=== PATIENT | male | born 1965 | race Caucasian/White ===

== ENCOUNTER 2018-01-12 20:32 | Emergency (ER) | payer OTHER ==
[~2018-01-12 20:32] MED LIST: PREVACID30 M1 PO
--- NOTE | 2018-01-12 21:02 | ED UPPER/LOWER EXTREMITY COMPL ---
History of Present Illness General Chief Complaint: Laceration Procedure Stated Complaint: FISHING HOOK IN 4TH FINGER, R HAND Source: patient Exam Limitations: no limitations Vital Signs & Intake/Output Vital Signs & Intake/Output Vital Signs Date Time Temp Pulse Resp B/P B/P Pulse O2 O2 Flow FiO2 Mean Ox Delivery Rate 01/12 2257 97.8 78 19 132/82 98 Room Air 01/12 2050 97.1 78 16 134/90 98 Room Air ED Intake and Output 01/13 0000 01/12 1200 Intake Total Output Total Balance Patient 195 lb Weight Weight Reported by Patient Measurement Method Allergies Coded Allergies: Sulfa (Sulfonamide Antibiotics) (Mild, ITCHING 01/12/18) acetaminophen (From DARVOCET-N) (Mild, DIZZY AND NAUSEAS 01/12/18) propoxyphene (From DARVOCET-N) (Mild, DIZZY AND NAUSEAS 01/12/18) Reconcile Medications Augmentin (Augmentin 500-125 Tablet) 500 MG-125 MG TABLET 1 TAB PO BID FOREIGN BODY REMOVAL Lansoprazole (Prevacid) 30 MG CAPSULE.DR 30 MG PO DAILY ACID REFLUX (Reported ) Triage Note: PT TO ED WITH C/O FISHING HOOK STUCK IN RIGHT RING FINGER. PT BELIEVES HE IS UTD WITH TETANUS Triage Nurses Notes Reviewed? yes Onset: Abrupt Duration: constant Timing: single episode today Severity: moderate Severity Numbers: 5 HPI: Patient is a 52-year-old male with past medical history hyperlipidemia who presents emergency room stating that while grabbing something in his garage he did not know there was a fish hook behind the object where he noticed acute onset of stabbing right fourth digit distal aspect finger pain and noted that the fish hook was embedded in the skin where he cannot remove it prior to arrival. Tetanus is unknown. Patient is [id number] (Praful Khan) Past History Travel History Traveled to [place] past 21 day No Medical History Any Pertinent Medical History? see below for history Neurological: NONE EENT: NONE Cardiovascular: NONE Respiratory: NONE Gastrointestinal: GERD Hepatic: NONE Renal: NONE Musculoskeletal: TORN MENISCUS Psychiatric: NONE Endocrine: NONE Blood Disorders: NONE Cancer(s): NONE PATIENT SERVICE REP/Reproductive: NONE Surgical History Surgical History: RT SHOULDER SX RT PINKY SX Psychosocial History What is your primary language Guatemalan Tobacco Use: Current Daily Use Daily Tobacco Use Amount/Type: => 5 Cigarettes daily Family History Hx Contributory? No (Praful Khan) Review of Systems Review of Systems Constitutional: Reports: no symptoms. EENTM: Reports: no symptoms. Respiratory: Reports: no symptoms. Cardiovascular: Reports: no symptoms. Gastrointestinal/Abdominal: Reports: no symptoms. Genitourinary: Reports: no symptoms. Musculoskeletal: Reports: see HPI. Skin: Reports: see HPI. Neurological/Psychological: Reports: no symptoms. Hematologic/Endocrine: Reports: see HPI. Immunological: Reports: no symptoms. All Other Systems: Reviewed and Negative (Praful Khan) Physical Exam Physical Exam General Appearance: no apparent distress, alert, comfortable Head: atraumatic Eyes: Bilateral: normal appearance. Ears, Nose, Throat: hearing grossly normal Peripheral Pulses: 2+ radial (L) Neurologic/Tendon: normal sensation, normal motor functions, normal tendon functions, responds to pain, no evidence tendon injury, no pulse deficit Skin: normal color Diagram Hands Front 1) NOTED IMBEDDED FISH HOOK IN 4THDIGIT NO ACTIVE BLEEDING (Praful Khan) Progress Differential Diagnosis: arterial insufficiency, compartment syndrome, contusion, dislocation, DVT, fracture, gout, septic arthritis, sprain, tendon injury Plan of Care: Current Medications Sig/Moise Start time Last Medication Dose Stop Time Status Admin Lidocaine 20 ML ONCE ONE 01/12 2115 UNVr (Lidocaine 1%) 01/13 2116 Tetanus/Diphtheria 0.5 ML ONCE ONE 01/12 2115 UNVr Toxoids Adsorbed 01/13 2116 (Decavac) Patient has noted indwelling fishhook to his right fourth digit finger There was noted Ralph at the distal end of the fish hook Using initially sterile technique Betadine to the right fourth digit I then used 8 mL of 1% lidocaine for digital block Due to the angulation of the fishhook and the depth of the fishhook that I could not advance the ralph through the skin to cut stitches last affect of the fishhook with the ralph that I had to make an incision proximal to the embedded and other fishhook using a #10 blade approximate 8 mm incision was made then now is able to completely pull out the [place]lin intact fishhook Patient tolerated well The incision site was then irrigated with copious amounts of 500 mL of sterile water and I applied chlorhexidine scrub to the region Been using benzoin on the margins I applied #5 Steri-Strips to the region then I applied gauze and finger splint Patient will be prophylactically given antibiotics Patient tolerated procedure well no concerns of foreign body retention however I did discuss with patient that this may always occur however the fishhook was fully intact in the site was significantly irrigated After the incision was made and the fishhook was removed patient had full resisted range of motion with flexion and extension of the right fourth digit and no concerns of tendon deficit after the procedure (Praful Khan) Departure Departure Disposition: HOME OR SELF CARE Condition: Stable Clinical Impression Primary Impression: Fish hook injury of finger of left hand Referrals: Cece COLEMAN,Franco Kay (PCP/Family) Additional Instructions: As discussed begin the prescription of Augmentin as directed to prevent infection, prescription rating at [facility]. If bleeding reoccurs apply direct pressure after 15 minutes of bleeding still exists return to emergency room, if you note signs of infection redness, pain, swelling or discharge return to emergency room. Begin [id number] ibuprofen for pain and inflammation. The Steri-Strips THAT HAVE BEEN APPLIED TO YOU IN THE emergency ROOM will follow for approximately 4 days, Departure Forms: Customer Survey General Discharge Information Prescriptions: Current Visit Scripts Augmentin (Augmentin 500-125 Tablet) 1 TAB PO BID #14 TAB (Praful Khan) PA/WOODS BOSS Co-Sign Statement Statement: ED Attending supervision documentation- [] I saw and evaluated the patient. I have also reviewed all the pertinent lab results and diagnostic results. I agree with the findings and the plan of care as documented in the PA's/WOODS BOSS's documentation. x I have reviewed the ED Record and agree with the PA's/WOODS BOSS's documentation. [] Additions or exceptions (if any) to the PAs/WOODS BOSS's note and plan are summarized below: [] (Zora COLEMAN,Benjamín Hameed)
[2018-01-12] MEDS ORDERED: AUGMENTIN 500-1 EACH PO (22:26)
[2018-01-12 22:57] VITALS: BP 132/82
== END 2018-01-12 22:59 ==
LOC: ERH 20:32
DX: S60.454A Superficial foreign body of right ring finger, initial encounter (principal); X58.XXXA Exposure to other specified factors, initial encounter; Y92.015 Private garage of single-family (private) house as the place of occurrence of the external cause; Y93.89 Activity, other specified
CPT/HCPCS: 90471; 90714; J2001